=== PATIENT | female | born 2005 | race Caucasian/White ===

== ENCOUNTER 2024-02-16 16:43 | Inpatient (IN) | payer OTHER, SELFPAY ==
[2024-02-16] VITALS (21 sets, daily range): BP systolic 98–124; BP diastolic 62–79; BMI 20.2; BMI 19.2
--- NOTE | 2024-02-16 14:04 | ED.GENMED ---
History of Present Illness
General
Chief Complaint: Abnormal Lab Value
Source: patient
Time Seen by Provider: 02/16/24 13:36
History of Present Illness
History of Present Illness:
18yoF with no significant past medical history presenting with her parents for evaluation of an abnormal outpatient lab. Patient recently returned from a trip to [place] 5 days ago. She developed watery diarrhea 4 days ago which she is having about
6 times per day. She was seen by her PCP yesterday for her symptoms. She was sent for lab work yesterday and was found to have a hemoglobin of 4.2. Patient has never had blood work done previously. She reports having mild fatigue for quite some
time as well as some exertional dyspnea. She also states that she has been eating ice x several years. She does not eat red meat and does not take iron supplementation. LMP was 2 weeks ago. She denies any heavy menses, hematochezia, melena. No
syncope or chest pain.
Phy Exam
General Physical Exam
General Presentation: no apparent distress
General age: appears stated age
General Skin: warm, dry and pale
General Mental: alert
Cardiovascular Exam
Cardiovascular Exam: regular rate/rhythm, no edema and no murmur
Pulmonary Exam
Pulmonary Exam: lungs clear, no respiratory distress, no rales and no rhonchi
Gastrointestinal Exam
Gastrointestinal Exam: non tender, soft and non distended
Skin Exam
Skin Exam: pallor
Psychiatric Exam
Psychiatric Exam: normal mood/affect
Course
Orders/Labs/Results
Orders:
Orders
02/16/24 14:04
Test Result ONCE
02/16/24 14:23
Type+Screen Urgent
Complete Blood Count/With Diff Urgent
Comprehensive Metabolic Panel Urgent
HCG, Serum Qualitative Screen Urgent
PTT Urgent
Prothrombin Time Urgent
TSH Reflex To Free T4 Urgent
02/16/24 14:55
Cardiac Monitoring- Treatment ONCE
02/16/24 15:41
Blood Bank Products [* Blood Bank Products] Urgent
Blood Bank Products: *Packed RBC Leuko(PRBC's)
Quantity: 3
Transfuse Today: Yes
Reason: Anemia
02/16/24 16:19
Abdomen/Pelvis wo Contrast CT [CT Abd/pelvis Wo Iv Cont] Urgent
Comment:
Reason For Exam: diarrhea, anemia, evaluate colitis
02/16/24 16:20
Admit/Transfer Patient As Directed
Co-Sign Provider:
Level of Care: Inpatient admission
Assign to:: Telemetry
Physician / Group: alex
Diagnosis: anemia, diarrhea
Reason for Telemetry: Arrhythmia
Date to Stop Telemetry: 02/19/24
Time to Stop Telemetry: 11:00
Reason for Hospitalization: anemia, diarrhea
Expected length of stay greater than two midnights?: Yes
ELOS- Estimated Length of Stay in days: 2
I certify the patient meets the requirements for IP care: Yes
Code Status As Directed
Resuscitation Status: Full Code
02/16/24 16:22
C difficile Antigen & Toxins Urgent
SARA Source: Feces/Stool
Specimen Description:
Norovirus by PCR Urgent
SARA Source: Feces/Stool
Specimen Description:
Ova & Parasites Giardia/Crypto AG [Giardia/Cryptosporidium Ag] Urgent
SARA Source: Feces/Stool
Specimen Description:
Stool Culture Urgent
SARA Source: Feces/Stool
Specimen Description:
02/16/24 16:29
Pantoprazole [Protonix IV] 80 mg IV NOW STA
02/16/24 16:32
0.9% Sodium Chloride [Nss (Preservative Free)] 20 ml IV NOW STA
02/16/24 18:00
Piperacillin/Tazo 3.375 Gram [Zosyn] 3.375 gram in 50 ml IV Q6H
02/17/24 08:00
0.9% Sodium Chloride [Nss (Preservative Free)] 10 ml IV BID
Pantoprazole [Protonix IV] 40 mg IV BID
02/19/24 11:00
DC Protocol for Telemetry ONCE
Abnormal Lab Results
02/16/24
14:23
RBC 3.15 L 10^6/uL
(4.20-5.40)
Hgb 4.4 L* g/dL
(12.0-16.0)
Hct 17.6 L* %
(37.0-47.0)
MCV 55.9 L fL
(81.0-99.0)
MCH 14.0 L pg
(27.0-31.0)
MCHC 25.0 L g/dL
(33.0-37.0)
RDW 22.4 H %
(11.5-14.5)
Absolute Monos (auto) 0.7 H 10^3/uL
(0.1-0.6)
Monocytes % 12.8 H %
(1.7-9.3)
PT 14.7 H Sec
(11.4-14.6)
Carbon Dioxide 19 L mmol/L
(22-30)
Crossmatch IS Only See Detail
02/16/24 14:23
02/16/24 14:23
Vital Signs
Initial and Last Documented VS:
Initial Vital Signs
Temp Pulse Resp BP Pulse Ox
98.6 F 93 16 113/79 100
02/16/24 12:45 02/16/24 12:45 02/16/24 12:45 02/16/24 12:45 02/16/24 12:45
Last Documented Vital Signs
Temp Pulse Resp BP Pulse Ox
98 F 84 14 107/62 100
02/16/24 16:24 02/16/24 16:24 02/16/24 16:24 02/16/24 16:05 02/16/24 16:24
MDM/Problems Addressed
Differential Diagnosis Includes:
18yoF here for a hemoglobin of 4.2 found on outpatient labs yesterday. C/o diarrhea x 4 days since returning from [place]. C/o mild fatigue and exertional dyspnea. She denies any active bleeding. She is afebrile and hemodynamically stable. HR normal
suggesting chronic process. Pallor noted on exam. Differential diagnosis includes but is not limited to: symptomatic anemia, iron deficiency, menorrhagia, GI bleed, malignancy
Initial ED plan: Check CBC, CMP, TSH, HCG, coags and type and screen.
*Critical Care Note
Total Time (30-74mins, 75-104mins- exclusive of procedures): Not Applicable
Update Note
Update Note:
Repeat hemoglobin 4.4. Remainder of labs unremarkable. Blood consent obtained and 3 units pRBCs ordered for transfusion. She was admitted for further evaluation and management.
ED Attending Note
-
Portions of this chart may have been created with voice recognition software.� Occasional wrong word or��sound alike� substitutions may have occurred due to the inherent limitations of voice recognition software.
Discharge Plan
Departure
Patient Disposition: Admit
Date of Disposition: 02/16/24
Time of Disposition: 15:48
Presentation/result/management discussed w/ accepting MD/DO: Hospitalist
Discharge Problem:
Symptomatic anemia
Interventions
Interventions:
*Risk Screen - Suicide Last Done: 02/16/24 12:45
*General Assessment Last Done: 02/16/24 14:32
*Neglect/Abuse Screening Last Done: 02/16/24 12:45
ED- Fall Risk Assessment Last Done: 02/16/24 12:45
*ED COVID-19 Vaccine History Last Done: 02/16/24 14:32
[2024-02-16 14:48] LABS: % Basophils 0.2 % (0-2); % Immature Granulocytes 0.4 % (0-0.5); % Lymphocytes 28.7 % (20.5-51.1); % Monocytes 12.8 % (1.7-9.3); % Neutrophils 53.9 % (42.2-75.2); Absolute Eosinophils 0.2 10^3/uL (0-0.7); Absolute Lymphocytes 1.5 10^3/uL (1.2-3.4); Absolute Monocytes 0.7 10^3/uL (0.1-0.6); Absolute Neutrophils 2.9 10^3/uL (1.4-6.5); Hematocrit 17.6 % (37.0-47.0); Mean Corpuscular Volume 55.9 fL (81.0-99.0); Mean Platelet Volume 8.6 fL (7.4-10.4); Nucleated Red Blood Cells % 0.4 %; Platelet Count 274 10^3/uL (130-400); Red Blood Cell Count 3.15 10^6/uL (4.20-5.40); Red Cell Dist. Width 22.4 % (11.5-14.5); White Blood Cell Count 5.3 10^3/uL (4.8-10.8)
[2024-02-16 14:49] LABS: Hemoglobin 4.4 g/dL (12.0-16.0)
[2024-02-16 14:50] LABS: APTT 30.2 Sec (23.4-35.0); INR 1.15; PT 14.7 Sec (11.4-14.6)
[2024-02-16 14:58] LABS: HCG, Serum Qualitative Screen Negative
[2024-02-16 15:01] LABS: ALT (SGPT) < 10 U/L (0-35); AST (SGOT) 20 U/L (14-36); Albumin 4.8 g/dl (3.5-5.0); Alkaline Phosphatase 85 U/L (38-126); Blood Urea Nitrogen 13 mg/dl (7-17); Calcium 9.5 mg/dl (8.4-10.2); Carbon Dioxide 19 mmol/L (22-30); Chloride 106 mmol/L (98-107); Estimated Creatinine Clearance > 125 ml/min; Glucose 86 mg/dl (70-99); Potassium 3.9 mmol/L (3.5-5.1); Sodium 136 mmol/L (135-145); Total Bilirubin 0.8 mg/dl (0.2-1.3); Total Protein 8.1 g/dl (6.3-8.2); eGFR > 60.00
[2024-02-16 15:10] LABS: Anisocytosis 2+; Hypochromasia 2+; Microcytosis 2+; Normal RBC Morphology No
[2024-02-16 15:11] LABS: Ovalocytes 1+
[2024-02-16 15:30] LABS: TSH Reflex To Free T4 0.66 uIU/ml (0.47-4.68)
--- NOTE | 2024-02-16 16:24 | HPS.HSE ---
Addendum entered and electronically signed by Daniel Recinos MD 02/16/24 19:13:
Results of CT scan show colitis and evidence of appendicitis. Keep NPO. General surgery consulted.
Addendum entered and electronically signed by Daniel Recinos MD 02/16/24 16:42:
NPO past midnight.
Addendum entered and electronically signed by Daniel Recinos MD 02/16/24 16:30:
Protonix 80 followed by 40 IV BID started.
Original Note:
Family Physician
-
Family Physician: Martha Corcoran PA-C
Chief Complaint
-
anemia, diarrhea
History of Present Illness
18-year-old female without past medical history presenting for abnormal outpatient labs. She has been feeling fatigue, weakness and dizziness and shortness of breath with exertion progressing over the past year which prompted her to have outpatient
labs which showed hemoglobin of 4.5. She never had blood work performed previously.
She recently returned from [place] 5 days ago and developed severe watery diarrhea while there. She has been having watery diarrhea for the past 5 days, up to 4 times a day slowly improving. She denies any blood in the stool or black stool. She
denies nausea or vomiting. She denies abdominal pain. She denies fevers or chills. She denies significant amount of blood loss from menstruation.
Denies any family history of GI problems. Mother has history of anemia.
She drinks alcohol occasionally.
Medical History
Past Medical History
Past Medical History: Reports None
Past Surgical History: Reports None
Social History
Tobacco: Non-smoker
Alcohol: Occasional
Drug: None
Family History
Family History: Not pertinent
Allergies / Home Medications
Allergies reflects when Allergies were last updated in [facility].
Home Medications with original date entered in [facility]
Allergy/Medication List:
Allergies
Allergy/AdvReac Type Severity Reaction Status Date / Time
avocado Allergy Vomiting Verified 02/16/24 12:47
Home Medications
No Meds [No Current Medications] 02/16/24
Review of Systems
-
History Source: Patient
A 12 point ROS was completed and negative except as noted: Yes
Constitutional: Reports No Symptoms
EENT: Reports No Symptoms
Respiratory: Reports No Symptoms
Cardiac: Reports No Symptoms
Abdomen/GI: Reports See HPI
: Reports No Symptoms
Musculoskeletal: Reports No Symptoms
Skin: Reports No Symptoms
Neurological: Reports No Symptoms
Endocrine: Reports No Symptoms
Hematologic/Lymphatic: Reports No Symptoms
Psych: Reports No Symptoms
Physical Exam
Vital Signs
Vital Signs
Temp Pulse Resp BP Pulse Ox
98.4 F 83 16 107/62 100
02/16/24 16:05 02/16/24 16:05 02/16/24 16:05 02/16/24 16:05 02/16/24 16:05
Physical Exam
General: Well Developed, Well Nourished and No Apparent Distress
HEENT: NormoCephalic, Moist mucous membranes and Atraumatic
Respiratory: Clear
Cardiac: S1/S2 and Regular Rhythm; No Murmur or Rub
GI: Soft, Non Distended, Normal Bowel Sounds and Tender (RLQ ); No Organomegaly
Rectal: Deferred by Provider
Musculoskeletal: No Clubbing, No Cyanosis and No Edema
Skin: No Rash
Neuro: Nonfocal/grossly intact
Laboratory Results
-
02/16/24 14:23
02/16/24 14:23
Laboratory Results
PT 14.7 Sec (11.4-14.6) H 02/16/24 14:23
INR 1.15 02/16/24 14:23
APTT 30.2 Sec (23.4-35.0) 02/16/24 14:23
Total Bilirubin 0.8 mg/dl (0.2-1.3) 02/16/24 14:23
AST 20 U/L (14-36) 02/16/24 14:23
ALT < 10 U/L (0-35) 02/16/24 14:23
Alkaline Phosphatase 85 U/L (38-126) 02/16/24 14:23
Data Reviewed
-
Lab Data: Labs Reviewed by me
Old Records: Reviewed
Impression/Plan
-
IMPRESSION:
PLAN:
# Symptomatic chronic microcytic anemia suspect chronic GI losses
-Hemoglobin 4.4
-3 units of blood transfusion
-Check iron studies, B12 and folate
-Clear liquid diet
-GI consulted
# Acute traveler's diarrhea after visiting [place]
-tenderness right lower quadrant
-No transaminitis to suggest hepatitis
-Check stool culture, norovirus, ova and parasites, C. difficile
-Check CT abdomen pelvis to evaluate for colitis
-Zosyn
Full code
DVT prophylaxis�SCDs
Clear liquid diet
--- NOTE | 2024-02-16 16:26 | EDRN ---
Patient denies symptoms of transfusion reaction during first 15 minute checks
[2024-02-16] MEDS: PROTONIX IV 80 MG IV (18:37)
[2024-02-16] MEDS: NSS (PRESERVATIVE FREE) 20 ML IV (18:38)
[2024-02-16 21:10] LABS: Iron 24 ug/dl (37-170)
[2024-02-16 21:19] LABS: Percent Saturation 5 % (20-50); Total Iron Binding Capacity 476 ug/dl (265-497)
[2024-02-16] MEDS: ZOSYN 50 IV (21:36)
[2024-02-16 21:53] LABS: Ferritin 2.7 ng/ml (6.24-137)
[2024-02-16 22:07] LABS: Vitamin B12 229 pg/ml (239-931)
[2024-02-17] VITALS (8 sets, daily range): BP systolic 105–128; BP diastolic 58–74
[2024-02-17 00:11] LABS: Folate 10.2 ng/ml (2.76-20)
--- NOTE | 2024-02-17 01:44 | PTCARENOTE ---
Pt was admitted to . Assessment done and charted. Nother at bedside. no complains. Continues with liquid stools. Last unit of RBC transfused.
[2024-02-17] MEDS: ZOSYN 50 IV ×2 (04:55→10:57)
[2024-02-17 07:00] LABS: % Basophils 0.5 % (0-2); % Eosinophils 4.2 % (0-6); % Immature Granulocytes 0.3 % (0-0.5); % Lymphocytes 29.4 % (20.5-51.1); % Monocytes 12.6 % (1.7-9.3); Absolute Eosinophils 0.3 10^3/uL (0-0.7); Absolute Lymphocytes 1.8 10^3/uL (1.2-3.4); Absolute Monocytes 0.8 10^3/uL (0.1-0.6); Absolute Neutrophils 3.2 10^3/uL (1.4-6.5); Hematocrit 25.3 % (37.0-47.0); Hemoglobin 7.4 g/dL (12.0-16.0); Mean Corp Hgb Conc. 29.2 g/dL (33.0-37.0); Mean Corpuscular Hgb 18.5 pg (27.0-31.0); Mean Corpuscular Volume 63.4 fL (81.0-99.0); Mean Platelet Volume 9.2 fL (7.4-10.4); Nucleated Red Blood Cells % 0.5 %; Platelet Count 236 10^3/uL (130-400); Red Blood Cell Count 3.99 10^6/uL (4.20-5.40); Red Cell Dist. Width 26.6 % (11.5-14.5)
[2024-02-17 07:21] LABS: ALT (SGPT) < 10 U/L (0-35); AST (SGOT) 20 U/L (14-36); Albumin 4.4 g/dl (3.5-5.0); Alkaline Phosphatase 82 U/L (38-126); Blood Urea Nitrogen 11 mg/dl (7-17); Calcium 9.4 mg/dl (8.4-10.2); Carbon Dioxide 21 mmol/L (22-30); Chloride 108 mmol/L (98-107); Estimated Creatinine Clearance 123 ml/min; Glucose 74 mg/dl (70-99); Potassium 3.8 mmol/L (3.5-5.1); Sodium 138 mmol/L (135-145); Total Bilirubin 3.6 mg/dl (0.2-1.3); Total Protein 7.4 g/dl (6.3-8.2); eGFR > 60.00
--- NOTE | 2024-02-17 07:46 | CON.GS ---
Addendum entered and electronically signed by Artie Denson MD 02/17/24 12:57:
Patient seen and examined independently of general surgery resident.
Brief HPI: 18-year-old female referred to the emergency department after outpatient labs identified a hemoglobin of 4.5. She was recently in [place] and had some watery diarrhea but denies any abdominal pain. Those symptoms have actually completely
resolved. She has no abdominal discomfort, pain and soreness. No fatigue, no lethargy or malaise. No anorexia. No nausea or vomiting.
She denies any previous active or known medical history. No past surgical history
AFVSS
ABD: Soft, nondistended, nontender palpation. Right lower quadrant there is no rebound rigidity or guarding
Assessment/plan: 18-year-old female presenting with anemia and CT imaging was apparently read as suspicious for acute appendicitis due to possible enlarged appendix with fat stranding.
There are no clinical signs or symptoms suggestive of acute appendicitis. Discussed with patient and her father at bedside.
No indications for appendectomy
Discussed no role to treat empirically with antibiotics for appendicitis either.
Signing off.
Patient counseled regarding signs or symptoms of appendicitis to monitor for.
Original Note:
Consultation
-
Performing Provider: Saul Gamboa MD ; Artie Denson MD
Reason for Consultation: Ct findings-acute appendicitis
Medical History
-
Chief Complaint: Fatigue and abnormal labs
History of Present Illness:
18-year-old female with no known past medical condition presented for further workup after she received abnormal outpatient labs with hemoglobin 4.5. Patient reports that she has been feeling tired/fatigue for almost a year and she decided to get
the blood work to explore the reasoning of her fatigue. She denied any previous blood work. She denies any chest pain, abdominal pain, shortness of breath.
Patient report returned from [place] on Tuesday and she developed watery diarrhea the next day. She denies any blood or mucus in the stools. She states that the diarrhea which was 4-5 episodes every day is improving and now she had only 3
semisolid bowel movements yesterday. She denies any fevers or chills with diarrhea. Additionally she reported that some of her friends who traveled to [place] with her have similar symptoms. Denies any significant amount of blood loss with
menstruation, last menstrual period on 02/03/2024.
CT abdomen: The appendix is enlarged and there is stranding of the fat adjacent to the distal aspect of the appendix. These findings are suspicious for appendicitis. There is fluid distention of portions of the colon and suggestion of mild colonic
thickening. These findings would be suggestive of colitis.
Past Medical History
Past Medical History: None
Past Surgical History: None
Social History
Tobacco: Non-Smoker
Alcohol: Occasional
Drug: None
Family History
Family History: Reviewed & Not Pertinent
Allergies / Home Medications
Allergy/AdvReac Type Severity Reaction Status Date / Time
avocado Allergy Vomiting Verified 02/16/24 12:47
�Medication �Instructions �Recorded �Confirmed �Type
No Meds [No Current Medications] 02/16/24 02/16/24 History
Review of Systems
-
History Source: Patient
Constitutional: No Symptoms
EENT: No Symptoms
Respiratory: No Symptoms
Cardiac: No Symptoms
Abdomen/GI: No Symptoms
: No Symptoms
Musculoskeletal: No Symptoms
Skin: No Symptoms
Neurological: No Symptoms
Endocrine: No Symptoms
Hematologic/Lymphatic: No Symptoms
A 10 point review of systems was completed, and was negative except as per HPI.
Physical Exam
Vital Signs
Temp Pulse Resp BP Pulse Ox
98.0 F 64 20 117/68 100
02/17/24 07:44 02/17/24 07:44 02/17/24 07:44 02/17/24 07:44 02/17/24 07:44
02/16/24 02/17/24 02/18/24
06:59 06:59 06:59
Actual Weight 60.645 kg
Body Mass Index (BMI) 19.2
Lab Results
02/17/24 05:52
02/17/24 05:52
WBC 6.0 10^3/uL (4.8-10.8) 02/17/24 05:52
Hgb 7.4 g/dL (12.0-16.0) L D 02/17/24 05:52
Hct 25.3 % (37.0-47.0) L 02/17/24 05:52
Plt Count 236 10^3/uL (130-400) 02/17/24 05:52
Abs Immat Gran (auto) 0.0 10^3/uL (0-0.05) 02/17/24 05:52
Neutrophils % 53.0 % (42.2-75.2) 02/17/24 05:52
Physical Exam
General: Well Developed, Well Nourished and No Apparent Distress
HEENT: Normocephalic and Anicteric
Cardiac: Regular Rhythm
GI: Soft, Non Tender, Non Distended and Normal Bowel Sounds
Skin: Other (mild diffuse pallor)
Neuro: Awake, Alert, Oriented and AO x 3
Psych: Calm
Data Reviewed
-
CT Scan: Image Personally Visualized and interpreted, Report Reviewed by me, Discussed with Physician and Discussed with Patient
Labs: Labs Reviewed by me, Discussed with Physician and Discussed with Patient
Total Time Spent with Patient (in minutes): 20
Assessment / Plan
-
18-year-old female with no known past medical conditions presented with abnormal labs. Further workup showed suspicion of acute appendicitis.
Acute appendicitis
-Physical exam unremarkable at this time and patient reports no symptoms
-Currently on IV antibiotic: Zosyn
-Patient is s/p 3 PRBCs for anemia: Recent labs show Inc in bilirubin, likely due to hemolytic anemia sec to E. Coli? vs blood transfusion related? culture pending.
- surgery not warranted at this time- Defer to Dr. Denson
GI prophylaxis: Protonix
All questions answered
[2024-02-17 08:09] LABS: Direct Bilirubin 0.4 mg/dl (0.0-0.4)
[2024-02-17] MEDS: PROTONIX IV 40 MG IV (08:21)
[2024-02-17] MEDS: NSS (PRESERVATIVE FREE) 10 ML IV (08:21)
--- NOTE | 2024-02-17 08:21 | CON.GI ---
Addendum entered and electronically signed by Mehdi Del Toro MD 02/17/24 15:54:
I personally performed a history and physical exam of the patient and discussed management with the resident. I reviewed the resident's note and agree with the documented findings and plan of care HPI/CC.
18 yo F p/w acute diarrhea after trip to [place]; all of her girlfriends who went with her also sick.
Also with profound BRANDY and B12 def.
Suspect diarrhea is traveler's diarrhea.
Do not suspect anemia related to diarrhea.
No baseline chronic diarrhea.
Has menses but not heavy.
MCV very low - could have thalassemia.
Could have celiac - celiac serologies added on and I sent a msg to nurse to make sure they draw the lab.
I d/w patient and dad egd/cscope to assess for gi etiology of BRANDY (she goes to college 03/03 - I offered to do outpatient previously) - risks of procedure inc bleeding, infection, perf, missed lesion reviewed. Discussed advantage of potentially
finding a source.
They wanted to defer for now and follow up in 1 week to see what celiac serologies are.
Appendicitis seen on CT - appreciate surgery input do not think appendicitis pt without RLQ pain/tenderness.
I d/w Dr. Jeffery planning for D/C.
GI will sign off will follow up next week with patient outpatient to determine if she would like endoscopic eval prior to returning to school.
Original Note:
Medical History
Chief Complaint / HPI
Chief Complaint: Acute-onset diarrhea, SOB
History of Present Illness:
Patient is a 18 yo F, with no significant PMH presenting with acute onset watery diarrhea (x6) since 4 days ago. Patient recently returned from a trip to [place] 5 days ago and was seen by her PCP yesterday. Outpatient labs revealed hemoglobin of
4.2. Patient reports mild fatigue and exertional dyspnea since about a year ago but did not seek medical attention. She does not eat red meat. Her menstrual cycle is regular and lasts for 3 to 4 days. She uses 4 regular pads on the first 2 days
and 2 pads on the following days. She is not sexually active and her LMP was 2 weeks ago. She denies any hematemesis, hematochezia, melena. Does not use NSAIDs frequently. Pt is not a heavy drinker. Has not noticed significant weight loss. Has
not required blood transfusions before and does not give a history of GERD.
Nationality is not Middle-Eastern.
Past Medical History
Past Medical History: None
Past Surgical History: None
Social History
Tobacco: Non-Smoker
Alcohol: Occasional
Drug: None
Living: With Family
Family History
Family History: Reviewed & Not Pertinent (Mother had anemia when she was young. Does not know the exact cause. No hx of thalassemia in family.)
Allergies / Home Medications
Allergy/AdvReac Type Severity Reaction Status Date / Time
avocado Allergy Vomiting Verified 02/16/24 12:47
�Medication �Instructions �Recorded
No Meds [No Current Medications] 02/16/24
Review of Systems
-
History Source: Patient
All other systems: A 12 pt ROS was Negative except as stated above in HPI
Constitutional: Reports Fatigue
EENT: Reports No Symptoms
Abdomen/GI: Denies Abdominal Pain, Nausea, Vomiting or Bloody Stools
Vital Signs
Temp Pulse Resp BP Pulse Ox
98.0 F 64 20 117/68 100
02/17/24 07:44 02/17/24 07:44 02/17/24 07:44 02/17/24 07:44 02/17/24 07:44
Physical Exam
Exam
General: Well Developed and No Apparent Distress
HEENT: Other (Icteric)
Respiratory: Clear and Non Labored Respirations
Cardiac: S1/S2 and Regular Rhythm
GI: Soft, Non Tender, Non Distended and Normal Bowel Sounds
Skin: Other (pale)
Neuro: Awake, Alert, Oriented and AO x 3
Results
WBC 6.0 10^3/uL (4.8-10.8) 02/17/24 05:52
Hgb 7.4 g/dL (12.0-16.0) L D 02/17/24 05:52
Hct 25.3 % (37.0-47.0) L 02/17/24 05:52
MCV 63.4 fL (81.0-99.0) L 02/17/24 05:52
Plt Count 236 10^3/uL (130-400) 02/17/24 05:52
Absolute Neuts (auto) 3.2 10^3/uL (1.4-6.5) 02/17/24 05:52
PT 14.7 Sec (11.4-14.6) H 02/16/24 14:23
INR 1.15 02/16/24 14:23
APTT 30.2 Sec (23.4-35.0) 02/16/24 14:23
Sodium 138 mmol/L (135-145) 02/17/24 05:52
Potassium 3.8 mmol/L (3.5-5.1) 02/17/24 05:52
Chloride 108 mmol/L (98-107) H 02/17/24 05:52
Carbon Dioxide 21 mmol/L (22-30) L 02/17/24 05:52
BUN 11 mg/dl (7-17) 02/17/24 05:52
Creatinine 0.7 mg/dL (0.6-1.0) 02/17/24 05:52
Calcium 9.4 mg/dl (8.4-10.2) 02/17/24 05:52
Total Bilirubin 3.6 mg/dl (0.2-1.3) H D 02/17/24 05:52
AST 20 U/L (14-36) 02/17/24 05:52
ALT < 10 U/L (0-35) 02/17/24 05:52
Alkaline Phosphatase 82 U/L (38-126) 02/17/24 05:52
Diagnostic Image Results:
CT abdomen: The appendix is enlarged and there is stranding of the fat adjacent to the distal aspect of the appendix. These findings are suspicious for appendicitis. There is fluid distention of portions of the colon and suggestion of mild colonic
thickening. These findings would be suggestive of colitis
Prior GI Procedures:
EGD:
none
Colonoscopy:
none
Assessment / Plan
-
Patient is a 18 yo F with BRANDY s/p 3 PRBCs. Her LBM was in the morning which was semisolid. No apparent source of GIB. Hemodynamics stable.
# appendicitis
# acute-onset diarrhea after recent travel
# newly-identified BRANDY
# Elevated T bili after blood tx
Plan:
- Checked direct Bili
- Appreciate surg; to continue with medical management of appendicitis, Continue Cipro
- Stool C. diff negative, Cryptosporidium/Giardia negative, Salmonella/ Shigella/ Campylobacter pending
- Celiac panel
- Blood transfusion if hgb falls below 7
- IV/oral Iron (IV only after infection is over)
- Might consider EGD/ cscopy as outpatient
-
-
Thank you for consultation and allowing me to participate in the patient's care. Please call the neon molder GI physician during the after hours with any questions or concerns.
--- NOTE | 2024-02-17 11:56 | CON.GI ---
Medical History
Chief Complaint / HPI
Chief Complaint: Acute-onset diarrhea, SOB
Allergies / Home Medications
Allergy/AdvReac Type Severity Reaction Status Date / Time
avocado Allergy Vomiting Verified 02/16/24 12:47
�Medication �Instructions �Recorded
No Meds [No Current Medications] 02/16/24
Review of Systems
Vital Signs
Temp Pulse Resp BP Pulse Ox
98.0 F 64 20 117/68 100
02/17/24 07:44 02/17/24 07:44 02/17/24 07:44 02/17/24 07:44 02/17/24 07:44
Physical Exam
Results
WBC 6.0 10^3/uL (4.8-10.8) 02/17/24 05:52
Hgb 7.4 g/dL (12.0-16.0) L D 02/17/24 05:52
Hct 25.3 % (37.0-47.0) L 02/17/24 05:52
MCV 63.4 fL (81.0-99.0) L 02/17/24 05:52
Plt Count 236 10^3/uL (130-400) 02/17/24 05:52
Absolute Neuts (auto) 3.2 10^3/uL (1.4-6.5) 02/17/24 05:52
PT 14.7 Sec (11.4-14.6) H 02/16/24 14:23
INR 1.15 02/16/24 14:23
APTT 30.2 Sec (23.4-35.0) 02/16/24 14:23
Sodium 138 mmol/L (135-145) 02/17/24 05:52
Potassium 3.8 mmol/L (3.5-5.1) 02/17/24 05:52
Chloride 108 mmol/L (98-107) H 02/17/24 05:52
Carbon Dioxide 21 mmol/L (22-30) L 02/17/24 05:52
BUN 11 mg/dl (7-17) 02/17/24 05:52
Creatinine 0.7 mg/dL (0.6-1.0) 02/17/24 05:52
Calcium 9.4 mg/dl (8.4-10.2) 02/17/24 05:52
Total Bilirubin 3.6 mg/dl (0.2-1.3) H D 02/17/24 05:52
AST 20 U/L (14-36) 02/17/24 05:52
ALT < 10 U/L (0-35) 02/17/24 05:52
Alkaline Phosphatase 82 U/L (38-126) 02/17/24 05:52
Diagnostic Image Results:
Prior GI Procedures:
EGD:
Colonoscopy:
Assessment / Plan
-
# appendcitis
#acute- onset diarrhea after recent travel
# newly-identified BRANDY
# Elevated T bili after blood tx
Plan:
- Check direct Bili
- Appreciate surg; to continue with medical management of appendicitis
- Continue Zocyn
- Stool C. diff negative, Cryptosporidium/Giardia megative
- Salmonella/ Shigella/ Campylobacter pending
- Blood transfusion if hgb <7
- EGD once patient is stable
-
-
Thank you for consultation and allowing me to participate in the patient's care. Please call the injection molding operator GI physician during the after hours with any questions or concerns.
--- NOTE | 2024-02-17 12:54 | CON.ONC ---
Impression
Impression
diarrhea - watery - no blood
microcytic anemia
iron deficiency
B12 deficiency
Plan
Plan
1. Anemia - microcytic - The etiology of this patient's microcytic anemia is likely related to her severe iron deficiency, which appears to have predated her diarrheal illness. The patient's ferritin was extremely low and she notes an increased
craving for ice for the past 4 years. As far as an etiology for her iron deficiency is concerned, it remains unclear. She does note decreased intake of red meat sources of iron. She denies heavy menses, blood in her stool or urine. Could consider GI
evaluation for other potential causes of iron deficiency.
Peripheral blood smear was reviewed today, w/ no evidence of schistocytes appreciated. W/ no blood in her stool and normal creatinine, it appears active hemolytic process related to her diarrhea, is less likely. Will check reticulocyte count, LDH,
and haptoglobin. Bilirubin was normal on presentation and increased this am, after transfusion, which could have been the nidus for this increase. LFTs will be repeated as well.
Once infection has cleared and/or pt is no longer on antibiotics, could consider IV iron supplementation. This can be done as an outpt, if patient were to be discharged. Oral iron supplementation could be considered in the meantime along w/ oral B12
supplementation.
Continue to follow CBC.
Patient History
History of Present Illness
18y/o female seen in consultation today regarding microcytic anemia.
The patient presented to the [facility] ER yesterday w/ increased fatigue and lethargy, in addition to watery diarrhea, following a trip to [place]. She notes several of the other people traveling with her all have the same GI symptoms.
CBC on presentation revealed total WBC 5300, hemoglobin 4.4g/dl, and platelet count 274,000. MCV was 55.9. Creatinine was normal as were LFTs. Iron studies revealed severe iron deficiency w/ ferritin of 2.7. B12 was also borderline low at 229. The
patient notes she does not eat red meat sources of iron. She notes normal menses - 4-5 days, not particularly heavy. She denies blood in her stool or urine. She does note a significant increased craving for ice for the last 4 years - positive pica.
She is feeling much better today after transfusion of PRBCs - hemoglobin is up to 7.4g/dl.
Clinically, she denies SOB at rest, chest pain, palpitations, abdominal pain. She has had some continued diarrhea. No skin rash. No headaches. No fevers or chills.
Past-Medical/Surgical History
PMH:
iron deficiency anemia
PSH: none
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
FH: non-contributory
Allergies: NKDA
Patient Medication
�Medication �Instructions �Recorded �Confirmed �Last Taken �Type
No Meds [No Current Medications] 02/16/24 02/16/24 Unknown History
Active Medications
Generic Name Dose Route Start Last Admin
Trade Name Freq PRN Reason Stop Dose Admin
Acetaminophen 650 mg 02/16/24 20:11
Acetaminophen 325 Mg Tablet PO 03/15/24 20:10
Q4HPRN PRN
mild pain/TALAVERA/temp> 100.4F
Ciprofloxacin 500 mg 02/17/24 12:00
Ciprofloxacin 500 Mg Tablet PO
BID ERIK
Pantoprazole Sodium 40 mg 02/17/24 08:00 02/17/24 08:21
Pantoprazole Sodium 40 Mg/10 Ml Vial IV 03/16/24 07:59 40 mg
BID ERIK Administration
Sodium Chloride 0 flush 02/16/24 21:00
Sodium Chloride 0.9% (Flush) Syringe IV 03/15/24 20:59
PER PROTOCOL ERIK
Review of Systems
-
A full ROS was performed w/ pertinent findings as per HPI.
Physical Exam
-
General: Well Developed, Well Nourished and No Apparent Distress
HEENT: Negative Jaundice
Cardiology: Normal Sinus Rhythm
Pulmonary: Clear
GI: Soft and Normal Bowel Sounds
Musculoskeletal: No Clubbing, No Cyanosis and No Edema
Neurology: Non Focal
Labs
Lab Results
WBC 6.0 10^3/uL (4.8-10.8) 02/17/24 05:52
RBC 3.99 10^6/uL (4.20-5.40) L 02/17/24 05:52
Hgb 7.4 g/dL (12.0-16.0) L D 02/17/24 05:52
Hct 25.3 % (37.0-47.0) L 02/17/24 05:52
MCV 63.4 fL (81.0-99.0) L 02/17/24 05:52
MCH 18.5 pg (27.0-31.0) L 02/17/24 05:52
MCHC 29.2 g/dL (33.0-37.0) L 02/17/24 05:52
RDW 26.6 % (11.5-14.5) H 02/17/24 05:52
Plt Count 236 10^3/uL (130-400) 02/17/24 05:52
MPV 9.2 fL (7.4-10.4) 02/17/24 05:52
Abs Immat Gran (auto) 0.0 10^3/uL (0-0.05) 02/17/24 05:52
Absolute Neuts (auto) 3.2 10^3/uL (1.4-6.5) 02/17/24 05:52
Absolute Lymphs (auto) 1.8 10^3/uL (1.2-3.4) 02/17/24 05:52
Absolute Monos (auto) 0.8 10^3/uL (0.1-0.6) H 02/17/24 05:52
Absolute Eos (auto) 0.3 10^3/uL (0-0.7) 02/17/24 05:52
Absolute Basos (auto) 0.0 10^3/uL (0-0.2) 02/17/24 05:52
Immature Gran % 0.3 % (0-0.5) 02/17/24 05:52
Neutrophils % 53.0 % (42.2-75.2) 02/17/24 05:52
Lymphocytes % 29.4 % (20.5-51.1) 02/17/24 05:52
Monocytes % 12.6 % (1.7-9.3) H 02/17/24 05:52
Eosinophils % 4.2 % (0-6) 02/17/24 05:52
Basophils % 0.5 % (0-2) 02/17/24 05:52
Creatinine 0.7 mg/dL (0.6-1.0) 02/17/24 05:52
Vital Signs
Vital Signs
Temp Pulse Resp BP Pulse Ox
98.4 F 72 18 107/62 100
02/17/24 11:30 02/17/24 11:30 02/17/24 11:30 02/17/24 11:30 02/17/24 11:30
[2024-02-17 14:25] LABS: Reticulocyte Count 0.4 % (0.4-2.8)
[2024-02-17 14:34] LABS: ALT (SGPT) < 10 U/L (0-35); AST (SGOT) 19 U/L (14-36); Albumin 4.6 g/dl (3.5-5.0); Alkaline Phosphatase 71 U/L (38-126); Direct Bilirubin 0.2 mg/dl (0.0-0.4); LDH 148 U/L (120-246); Total Bilirubin 2.4 mg/dl (0.2-1.3); Total Protein 7.7 g/dl (6.3-8.2)
--- NOTE | 2024-02-17 14:45 | CM ---
Patient seen at bedside with physician. Patient stated that she normally attends school in [place], has been traveling but is currently home with her family. Patient parents both in room. Patient stated that she is independent of ADL's and IADL's.
Patient PCP is from [facility], and she uses the [facility] in [place]. Patient does have an old nebulizer but does not have any other DME. Patient plan is for discharge home with parents and follow up with PCP. CM will continue
to follow for discharge planning needs.
Plan; home with no needs anticipated
--- NOTE | 2024-02-17 17:25 | W.PN.HOSP.TC ---
Addendum entered and electronically signed by Melina Adkins MD 02/17/24 18:36:
I saw and evaluated the patient independently. I reviewed the resident�s note and agree with findings and plan as documented by Dr. Okeefe.
GENERAL: well developed, well nourished, female in no apparent distress
HEENT:NC/AT
HEART: regular rate and rhythm, +S1, +S2
LUNGS : clear to auscultation bilaterally
ABDOM: soft, nontender, nondistended, + bowel sounds
EXT: no cyanosis, clubbing, or edema
NEUROLOGIC: grossly intact
Symptomatic chronic microcytic anemia --likely due to poor iron absorption and/or inadequate intake--patient denies heavy menses--patient also B12 deficient--iron studies consistent with iron deficiency anemia---Hemoglobin 4.4 after transfusion of 3
units of packed red blood cells had adequate improvement to 7.4--we will like to give 1 more unit prior to discharge--mother had history of anemia--thalassemia, celiac disease all possible in addition to above etiologies--appreciate
hematology/GI--defer on scopes for now--will give iron and B12 supplementation as outpatient with plans for repeat labs at school break
Acute traveler's diarrhea after visiting [place]--patient also had right lower quadrant tenderness and CAT scan showed enlarged appendix--appreciate surgery input--no need for surgical intervention at this time--stool studies negative for C.
difficile, norovirus 1 and 2, Cryptosporidium, Giardia, still pending are Salmonella/Shigella/Campylobacter/E. coli Shiga toxin--until acute infection ruled out, will discharge patient on ciprofloxacin 500 mg twice daily for 5 days
Elevated bilirubin--with mild jaundice--doubt hemolysis--likely related to transfusions--appreciate hematology--no signs of hemolysis on blood smear
Okay for discharge with appropriate follow-up
Original Note:
Today's Communication/Plan
-
Patient was given 1 unit of blood prior to discharge. Send clinically stable. Sent home on ciprofloxacin. Told not to start iron supplements until after finishing antibiotics. Start B12. Follow-up in hematology outpatient. Discharge today
Assessment / Plan
Assessment / Plan
PLAN:
# Symptomatic chronic microcytic anemia suspect chronic GI losses
-Hemoglobin 4.4. Today 7.4
-MCV 63, iron 24, percent saturation, ferritin 2.7, B12 229
-3 units of blood transfusion
-GI consulted
-Hematology consulted
-Surgery consulted
-RLQ tenderness on palpation in ED. Today no tenderness.
-Abdominal CT showed enlarged appendix and colitis
-Surgery noted no clinical signs or symptoms suggestive for appendectomy
-GI not worried about acute bleed requiring scope. Recommended follow-up in outpatient
-Labs for celiac pending
-Hematology believes she has chronic microcytic anemia secondary to severe iron deficiency.
-Start iron PO supplementation after finishing ciprofloxacin and B12
-Patient given 1 additional unit of blood before discharge.
-Patient discharged today.
-Will follow-up with hematology
# Acute traveler's diarrhea after visiting [place]
-tenderness right lower quadrant in ED
-Stool culture negative for C. difficile, Cryptosporidium/Giardia, norovirus other bacterial etiologies pending
-CT reveals enlarged appendix and colitis.
-Total bilirubin 3.6
-Hematology consulted for potential HUS. Ruled out.
-On Zosyn in hospital. Will continue on ciprofloxacin outpatient.
-Patient made aware not to start iron until after finishing cipro
#B12 deficiency
-B12 229
-B12 supplements
Full code
DVT prophylaxis�SCDs
Regular diet
Anticipated Discharge: Today
Subjective/Interval History
-
Date of Service: February 17, 2024
Objective Data
-
Labs:
Laboratory Results
02/17/24 02/17/24
05:52 14:06
WBC 6.0
Hgb 7.4 L D
Hct 25.3 L
Plt Count 236
Sodium 138
Potassium 3.8
Chloride 108 H
Carbon Dioxide 21 L
BUN 11
Creatinine 0.7
Glucose 74
Calcium 9.4
Total Bilirubin 3.6 H D 2.4 H
AST 20 19
ALT < 10 < 10
Alkaline Phosphatase 82 71
Vital Signs:
Vital Signs
Temp Pulse Resp BP Pulse Ox
98.4 F 76 16 108/61 97
02/17/24 17:15 02/17/24 17:15 02/17/24 17:15 02/17/24 17:15 02/17/24 17:15
I&O
02/16/24 02/17/24 02/18/24
06:59 06:59 06:59
Intake Total 1090 / 1090 250 / 250
Balance 1090 / 1090 250 / 250
Review of Systems
-
History Source: Patient
EENT: Reports No Symptoms Reported
Respiratory: Reports No Symptoms
Cardiac: Reports No Symptoms
Abdomen/GI: Reports No Symptoms
Genitourinary: Reports No Symptoms
Neuro: Reports No Symptoms
Physical Exam
-
General: Well Developed, Well Nourished, No Apparent Distress and Comfortable
HEENT: Anicteric (slightly)
Respiratory: Clear to Auscultation
Cardiac: Regular Rhythm and S1/S2
GI: Soft, Nontender and Nondistended; Negative Tender
Musculoskeletal: No Edema
Neuro: AO x 3
Psych: Calm
--- NOTE | 2024-02-17 19:58 | W.DCSUMMARY ---
Addendum entered and electronically signed by Melina Adkins MD 02/17/24 20:55:
Read, reviewed, and agree. See same day progress note for additional details. Time spent coordinating care, DC planning, review of DC plan of care with resident, transition of care, review of records in EMR, med rec, consults, notes, d/w
consultants, nursing, family, and CM = 22 minutes
Original Note:
Discharge Summary
Discharge Data
Date of Admission: 02/16/24
Date of Discharge: 02/17/24
-
Pending Results: Yes
Additional Pending Results:
Haptoglobin, Immunoglobulin A, Endomysial IgA ab titer, Tissue trans glutamine IgG, tissue transglutaminase IgA, Salmonella/Shigella culture, Campylobacter culture, Shiga toxin test
Hospital Course
Primary diagnosis:
-Symptomatic chronic microcytic anemia consistent with iron deficiency
-B12 deficiency
-Acute traveler's diarrhea
Hospital course:
Angelica is a 18-year-old female who presented to the ED due to abnormal outpatient labs. Her hemoglobin was 4.5. She had never gotten blood work previously done. Patient had no complaints but did note that for the past few years she had grown
increasingly fatigued. She has experienced episodes of weakness, dizziness and shortness of breath over exertion over the past few years but has been able to function normally. She also constantly craved to eat ice for the past 4 years. The
patient also recently got back from [place] and has experienced 5 days of watery diarrhea. She denied any bloody or black stools. The patient stated she had no nausea vomiting or abdominal pain. On physical exam patient had right lower quadrant
pain. Hg 4.[address] showed signs of an enlarged appendix and colitis. Stool samples were taken. Patient was given 3 units of PRBC, started on IV zosyn, and GI and surgery were consulted. The next day her hemoglobin was 7.4.
Total bilirubin 3.8, MCV 63.4, iron 24, TIBC 476, percent saturation 5, B12 229. Stool samples ruled out Cryptosporidium, Giardia, C. difficile, norovirus. Other bacterial etiologies pending. Based on clinical presentation surgery did not believe
she needed an appendectomy at this time. GI did not believe her anemia was due to an acute GI blood loss and recommended to follow-up in outpatient for malabsorption etiologies and potential scoping. Hematology ruled out HUS and believes patient's
anemia was due to to chronic microcytic BRANDY and B12 deficiency. Patient was given 1 more unit of blood, switched from IV Zosyn to oral ciprofloxacin for 5 days and recommended to start iron after she finished antibiotics and B12 supplementation.
Today, patient is clinically stable and was discharged. Patient plans to follow-up with GI and hematology.
Discharge Plan
-
Patient Disposition: Home (Routine Discharge)
Discharge Diagnosis/Procedures: Symptomatic chronic microcytic anemia consistent with iron deficiency, B12 deficiency, acute traveler's diarrhea
Condition: Good
Diet: As tolerated
Activity: As tolerated
Driving Restrictions: As prior to admission
Bathing Restrictions: None
Referrals:
Martha Corcoran PA-C [Family Provider] - in one week
Mehdi Del Toro MD [Active] - (call GI in 1 week to review celiac testing . Consider EGD/colon for anemia )
Vicente Ga MD [Active] - (May also see Dr. Rose, Dr. Zimmerman, Dr. Zabala, or anyone else in the group. Call for appointment)
Prescriptions:
New
ciprofloxacin HCl 500 mg Tablet
500 mg PO BID 5 Days Qty: 10 0RF
ferrous sulfate 325 mg (65 mg iron) tablet
325 mg PO TID Qty: 30 0RF
Rx Instructions:
Take with meals
cyanocobalamin (vitamin B-12) 1,000 mcg tablet
1,000 mcg PO DAILY Qty: 30 0RF
Discharge Orders:
Discharge Patient (As Directed); Ordered 02/17/24
Ordered By: Samantha Okeefe
Discharge Date and Time
Discharge Date/Time: 02/17/24 17:47
Print Language: BELARUSIAN
[2024-02-20 00:31] LABS: IgA 308 mg/dl (70-400)
[2024-02-20 19:41] LABS: Haptoglobin 67 mg/dL (30-200)
[2024-02-21 00:19] LABS: Endomysial IgA Antibody Titer <1:10 (<1:10)
[2024-02-22 12:28] LABS: tTG IgA Antibody 8.3 EU/ml (0-19); tTG IgG Antibody 23.1 EU/ml (0-19)
== END 2024-02-17 17:47 | disposition home or self-care (01) | DRG 812 ==
LOC: 2 NORTH 16:43
PROVIDERS: Physician Assistant; ADMITTING PHYSICIAN Hospitalist; ATTENDING PHYSICIAN Internal Medicine; CONSULT PHYSICIAN Internal Medicine Gastroenterology; CONSULT PHYSICIAN Internal Medicine Hematology & Oncology; EMERGENCY PHYSICIAN Emergency Medicine; FAMILY PHYSICIAN Physician Assistant Medical; OTHER PHYSICIAN Surgery
PROC: 30233N1 Transfusion of Nonautologous Red Blood Cells into Peripheral Vein, Percutaneous Approach (ICD-10-PCS; 2024-02-16)
DX: D50.9 Iron deficiency anemia, unspecified (principal); E53.8 Deficiency of other specified B group vitamins; R19.7 Diarrhea, unspecified
CPT/HCPCS: 36430; 74176; 80053; 80076; 82248; 82607; 82728; 82746; 82784; 83010; 83516; 83540; 83550; 83615; 84443; 84703; 85025; 85045; 85610; 85730; 86231; 86850; 86900; 86901; 86920; 87045; 87046; 87324; 87328; 87329; 87427; 87449; 87798; 99285; P9016; P9040

== ENCOUNTER → 2024-02-24 06:36 | Day surgery (SDC) | payer OTHER, SELFPAY | LOC: GI 06:36 | PROVIDERS: ATTENDING PHYSICIAN Internal Medicine Gastroenterology | DX: D50.0 Iron deficiency anemia secondary to blood loss (chronic) (principal); R76.8 Other specified abnormal immunological findings in serum; K31.A0 Gastric intestinal metaplasia, unspecified | CPT/HCPCS: 43239; 88305; 88342 ==